=== PATIENT | male | born 1970 | race Caucasian/White ===

== ENCOUNTER 2017-10-07 12:15 | Inpatient (IN) | payer SELFPAY ==
[~2017-10-07] VITALS: Ht 177.8 cm; Wt 73.3 kg
[2017-10-07] MEDS ORDERED: BISMUTH SUBSALICYLATE PER ML OMNICELL CHARGE PO PRN (13:00)
[2017-10-07] MEDS ORDERED: SODIUM CHLORIDE 0.65% NA SOLN 45 ML (OCEAN) PRN (13:00)
[2017-10-07] MEDS ORDERED: MAGNESIUM HYDROXIDE SUSP 30 ML UDC PO PRN (13:00)
[2017-10-07] MEDS ORDERED: ACETAMINOPHEN 325 MG TAB PO PRN (13:00)
[2017-10-07] MEDS ORDERED: ALUMINUM/MAGNESIUM SUSP 30 ML UDC PO PRN (13:00)
[2017-10-07 13:17] VITALS: BP 141/79; PULSE 127; TEMP 36.6; Ht 177.8 cm; Wt 73.3 kg
[2017-10-07] MEDS ORDERED: NURSING VERBAL MED ORDER ONE (13:30)
[2017-10-07] MEDS ORDERED: PATIENT'S ALLERGY INFO NEEDS ENTERED SCH (14:00)
[2017-10-07] MEDS: hydrOXYzine HCL 25 MG TAB PO PRN (14:09)
[2017-10-07] MEDS ORDERED: CLON0.5T3 PO (14:13)
[2017-10-07] MEDS ORDERED: VENL150C PO (14:13)
[2017-10-07] MEDS ORDERED: FENO134C2 PO (14:13)
[2017-10-07] MEDS ORDERED: ATOR-26 PO (14:13)
[2017-10-07] MEDS ORDERED: PRLSR20 PO (14:13)
[2017-10-07] MEDS ORDERED: RISP3TAB12 PO (14:13)
[2017-10-07] MEDS: NICOTINE 21 MG/24 HR TDSY EXT SCH (14:21)
[2017-10-07] MEDS ORDERED: RISPERIDONE 1 MG TAB PO PRN (15:45)
--- NOTE | 2017-10-07 15:48 | Psychiatric History & Physical ---
History Date of Service Oct 07, 2017. Identifying Data Jamie Harris is a 46-year-old male admitted on Oct 07, 2017 at 12:15 who currently lives in [place] with his and [id number]. Jamie Harris was admitted on a 201 voluntary commitment. Patient is admitted after transfer from the [facility] ED. The patient was brought to the unit after transfer from [facility]. Information provided by the patient is considered to be reliable, with exception of medication history. Chief Complaint "The obvious things is I lost my medication". History of Present Illness Jamie Harris is a 46-year-old male admitted to [address] [place] [address] following acceptance from [facility] ED. Pt reports having been off medications for the past month after losing his job and subsequently losing his insurance. He also reports increased stress as his [id number] has been living in his home and requires a considerable amount of care. Pt states he and his were in an argument yesterday in which she had threatened to leave and he had said, "well if I don't have a job or a , I might as well just shoot myself" . Pt's mother and brother were informed if the comment and he was brought to the ED for mental health evaluation. Pt was agreeable to inpatient treatment. Pt states he has struggled with depression for several years, with worsening in the past 2-3. He reports low mood, decreased energy, hopelessness for the past few days, and feeling as though he is a burden. Pt reports occasional passive SI over the past few years, but states he had never formed a plan or had intent or acts of furtherance. He denies contemplation of suicide prior to the argument with his and states the comment lacked intent. Pt reports anxiety as well, reporting irritability and feeling "on-edge". He denies history of panic attacks. Pt current receives prescriptions from [facility]. He was prescribed risperidone 3mg, venlafaxine 150mg, and clonazepam 0.5mg BID-TID. Pt denies SI/ HI, SIB, A/V hallucinations, paranoia, allison, OCD, PTSD, eating disorder, and other psychosis. Past Psychiatric History Current OP Treatment: psychiatrist ([facility]) Prior OP Treatment: no prior treatment Prior Psych Hospitalizations: none Access to a Gun: No (per pt brother has his gun) Suicide Attempts: No Past Medical/Surgical History History of Concussion/Seizure: No Allergies Allergies: Coded Allergies: Ziprasidone (Unverified Allergy, Unknown, SHORTNESS OF BREATH, 10/07/17) Home Medications Scheduled Atorvastatin (Lipitor), 1 TAB PO HS Fenofibrate (Tricor ), 134 MG PO DAILY Omeprazole (Prilosec), 40 MG PO DAILY Risperidone (Risperdal), 3 MG PO HS Venlafaxine Hcl (Effexor Xr), 1 CAP PO DAILY Scheduled PRN Clonazepam (Klonopin), 0.5 MG PO TID PRN for anxiety/insomnia Family History History of Suicide: No History of Substance Abuse: Yes (Dad - Alcoholic) Psychiatric History: No Alcohol Use Alcohol Use In Past 12 Months: No AUDIT Total Score: 0 Smoking Use Smoking Status: Current Every Day Smoker 1 - 1.5 ppd Personal History Lives in: [place] Childhood: Pt was raised primarily by his mother after the of his father. He reports a diagnosis of dyslexia, difficulty concentrating, and unknown learning disability. 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 Relationship History: Children: none Spiritual Affiliation: none Legal History: none Psychological Trauma History: Denies Hx Traumatic Event Review of Systems Psych: denies symptoms other than stated above Constitutional: denied Cardiovascular: denied Respiratory: reports chronic cough from smoking GI: history of indigestion, worsening Neurologic: denied Remainder of 10 body systems also reviewed and denied other than noted above. Examination Physical Examination A physical exam was performed in ER at [facility] by Clyde PITTS , prior to admission. Pt received medical clearance from [facility] prior to transfer to this facility. I accept that physical as correct/medical clearance for the inpatient physical exam. Vital Signs Vital Signs Past 12 Hours Date Time Temp Pulse Resp B/P (MAP) Pulse Ox O2 Delivery O2 Flow Rate FiO2 10/07/17 13:17 36.6 127 18 141/79 Mental Examination During interview pt is: alert and oriented, cooperative Appearance: appropriately dressed (in t-shirt and scrub pants), appropriately groomed Eye contact is: fair Motor behavior is: steady gait & station, no abnormal motor movements Speech: normal in rate, rhythm & volume Affect: depressed, tearful Mood is: depressed Thought process: goal directed, clear, coherent Thought content: reality based without delusions Suicidal thought are: denied (suicidal statement of "I'll just shoot myself" prior to transfer), Plan: denied, Intent: denied Homicidal thoughts are: denied Hallucinations: denies auditory, denies visual Cognition: attention grossly intact, language grossly intact, other (memory impairment with respect to medications) Intelligence estimated to be: average Insight: limited Judgement: limited Impression / Recommendations Impression 46-year-old male admitted to [address] [place] [address] following acceptance from [facility] ED. Pt states suicidal statements were made in the context of argument with his . He denies SI prior to the argument and denies intent or acts of furtherance. Pt reports worsening of mood as he has not been taking his medications for the past month. He reports desire to be restarted on his medications. As patient has lost his insurance and Medical Assistance coverage is not guaranteed, will plan to start on generic medications available through [facility]'s $4 prescription plan to maximize compliance once discharged. Will start risperidone 1mg qHS with plan to convert to haloperidol at discharge. Pt given risperidone 1mg BID prn for anxiety and agitation. Will start fluoxetine 20mg qAM due to availability and decent response to this medication in the past. Pt informed of hydroxyzine available prn for anxiety with plans to discontinue clonazepam use if effective. Diagnosis at this point is unclear as he reports depression and anxiety, but has been on at least ziprasidone and risperidone in the past, seeking clarification from outpatient records. Pt has signed 72-hour notice shortly after admission. Inventory Assets Strengths: willingness for treatment, stable outpatient provider Needs: mitigate risk factors, resolution of current relationship stressors Risk Factors Assessment Male: Yes : Yes /single/: No Access to guns: No (per pt brother has his gun) Health problems: No Mental Health Diagnoses: Yes Substance use disorders: No Previous attempt: No Previous psychiatric stay: No Hopelessness: Yes Smoker: Yes Protective Factors Assessment Holiness beliefs: No : Yes Responsible for young children: No Employed: No Supportive family: Yes Good rapport with provider: No Recommendations (1) Depressive disorder 2/2 - Start risperidone 1mg qHS, prn dosing of 1mg BID for anxiety/agitation. Started on fluoxetine 20mg qAM for antidepressant coverage. - Fasting glucose and lipid panel ordered for tomorrow AM. - Request records from patient's outpatient providers - Encourage participation in group programming including recreational therapy and group therapy - Encourage phone/in-person meeting with identified supports. CPT Code Initial Hospital Care: [id number]
[2017-10-07] MEDS ORDERED: FENOFIBRATE: ORDER AWAITING ACTION SCH (16:00)
--- NOTE | 2017-10-07 19:01 | Psychiatric History & Physical ---
Psychiatric History & Physical Date of Service Oct 07, 2017. Identifying Data Jamie Harris is a 46-year-old male admitted on Oct 07, 2017 at 12:15 who currently lives in [place] with his and [id number]. Jamie Harris was admitted on a 201 voluntary commitment. Patient is admitted after transfer from the [facility] ED. The patient was brought to the unit after transfer from [facility]. Information provided by the patient is considered to be reliable, with exception of medication history. Chief Complaint "The obvious thing is I lost my medication". History of Present Illness Jamie Harris is a 46-year-old male admitted to [address] [place] [address] following acceptance from [facility] ED. Pt reports having been off medications for the past month after losing his job and subsequently losing his insurance. He also reports increased stress as his [id number] has been living in his home and requires a considerable amount of care. Pt states he and his were in an argument yesterday in which she had threatened to leave and he had said, "well if I don't have a job or a , I might as well just shoot myself" . Pt's mother and brother were informed if the comment and he was brought to the ED for mental health evaluation. Pt was agreeable to inpatient treatment. Pt told Mitch Gilmore PA-C that he has struggled with depression for several years, with worsening in the past 2-3. He reports low mood, decreased energy, hopelessness for the past few days, and feeling as though he is a burden. Pt reports occasional passive SI over the past few years, but states he had never formed a plan or had intent or acts of furtherance. He denies contemplation of suicide prior to the argument with his and states the comment lacked intent. Pt reports anxiety as well, reporting irritability and feeling "on-edge ". He denies history of panic attacks. Pt current receives prescriptions from [facility]. He was prescribed risperidone 3mg, venlafaxine 150mg, and clonazepam 0.5mg BID-TID. Pt denies SI/ HI, SIB, A/V hallucinations, paranoia, allison, OCD, PTSD, eating disorder, and other psychosis. Past Psychiatric History Current OP Treatment: psychiatrist ([facility]) Prior OP Treatment: no prior treatment Prior Psych Hospitalizations: none Access to a Gun: No (per pt brother has his gun) Suicide Attempts: No Past Medical/Surgical History History of Concussion/Seizure: No Allergies Allergies: Coded Allergies: Ziprasidone (Unverified Allergy, Unknown, SHORTNESS OF BREATH, 10/07/17) Home Medications Scheduled Atorvastatin (Lipitor), 1 TAB PO HS Fenofibrate (Tricor ), 134 MG PO DAILY Omeprazole (Prilosec), 40 MG PO DAILY Risperidone (Risperdal), 3 MG PO HS Venlafaxine Hcl (Effexor Xr), 1 CAP PO DAILY Scheduled PRN Clonazepam (Klonopin), 0.5 MG PO TID PRN for anxiety/insomnia Family History History of Suicide: No History of Substance Abuse: Yes (Dad - Alcoholic) Psychiatric History: No Alcohol Use Alcohol Use In Past 12 Months: No AUDIT Total Score: 0 Smoking Use Smoking Status: Current Every Day Smoker 1 - 1.5 ppd Personal History Lives in: [place] Childhood: Pt was raised primarily by his mother after the of his father. He reports a diagnosis of dyslexia, difficulty concentrating, and unknown learning disability. 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 Relationship History: Children: none Spiritual Affiliation: none Legal History: none Psychological Trauma History: Denies Hx Traumatic Event Review of Systems Psych: denies symptoms other than stated above Constitutional: denied Cardiovascular: denied Respiratory: reports chronic cough from smoking GI: history of indigestion, worsening Neurologic: denied Remainder of 10 body systems also reviewed and denied other than noted above. Examination Physical Examination A physical exam was performed in ER at [facility] by Clyed PITTS , prior to admission. Pt received medical clearance from [facility] prior to transfer to this facility. I accept that physical as correct/medical clearance for the inpatient physical exam. Vital Signs Vital Signs Past 12 Hours Date Time Temp Pulse Resp B/P (MAP) Pulse Ox O2 Delivery O2 Flow Rate FiO2 10/07/17 13:17 36.6 127 18 141/79 Mental Examination During interview pt is: alert and oriented, cooperative Appearance: appropriately dressed (in t-shirt and scrub pants), appropriately groomed Eye contact is: fair Motor behavior is: steady gait & station, no abnormal motor movements Speech: normal in rate, rhythm & volume Affect: depressed, tearful Mood is: depressed Thought process: goal directed, clear, coherent Thought content: reality based without delusions Suicidal thought are: denied (suicidal statement of "I'll just shoot myself" prior to transfer), Plan: denied, Intent: denied Homicidal thoughts are: denied Hallucinations: denies auditory, denies visual Cognition: attention grossly intact, language grossly intact, other (memory impairment with respect to medications) Intelligence estimated to be: average Insight: limited Judgement: limited Impression / Recommendations Impression 46-year-old male admitted to [address] [place] [address] following acceptance from [facility] ED. Pt states suicidal statements were made in the context of argument with his . He denies SI prior to the argument and denies intent or acts of furtherance. Pt reports worsening of mood as he has not been taking his medications for the past month. He reports desire to be restarted on his medications. As patient has lost his insurance and Medical Assistance coverage is not guaranteed, will plan to start on generic medications [facility] to maximize compliance once discharged. Will start risperidone 1mg qHS with plan to convert to haloperidol at discharge if cost remains a facot. Pt given risperidone 1mg BID prn for anxiety and agitation. Will start fluoxetine 20mg qAM due to availability and decent response to this medication in the past. Pt informed of hydroxyzine available prn for anxiety with plans to discontinue clonazepam use if effective. Diagnosis at this point is unclear as he reports depression and anxiety, but has been on at least ziprasidone and risperidone in the past, seeking clarification from outpatient records. Pt has signed 72-hour notice shortly after admission. Inventory Assets Strengths: willingness for treatment, stable outpatient provider Needs: mitigate risk factors, resolution of current relationship stressors Risk Factors Assessment Male: Yes : Yes /single/: No Access to guns: No (per pt brother has his gun) Health problems: No Mental Health Diagnoses: Yes Substance use disorders: No Previous attempt: No Previous psychiatric stay: No Hopelessness: Yes Smoker: Yes Protective Factors Assessment Confucianist beliefs: No : Yes Responsible for young children: No Employed: No Supportive family: Yes Good rapport with provider: No Recommendations (1) Depressive disorder 2/2 - Restart risperidone at lower dose of 1mg qHS, prn dosing of 1mg BID for anxiety/agitation. Started on fluoxetine 20mg qAM for antidepressant coverage. - Fasting glucose and lipid panel ordered for tomorrow AM as reviewed need for metabolic monitoring, baseline AIMS appears 0 - Request records from patient's outpatient providers -The patient is admitted to [facility] ([facility] inpatient mental health unit) on q 15 min checks (behavioral with suicide precautions) for safety. The patient will participate in group, recreational and milieu therapies and will be offered additional individual and family sessions as clinically appropriate. CPT Code Initial Hospital Care: [id number]
[2017-10-07] MEDS: ATORVASTATIN 40 MG TAB PO SCH (21:17)
[2017-10-07] MEDS ORDERED: hydrOXYzine HCL 25 MG TAB PO ONE (22:00)
[2017-10-07] MEDS ORDERED: RISPERIDONE 1 MG TAB PO SCH (22:00)
[2017-10-08 07:01] VITALS: BP_SYST 101; BP_SYST 116; BP_DIAS 70; BP_DIAS 87; PULSE 118; PULSE 92; TEMP 36.6
[2017-10-08] MEDS: NICOTINE 21 MG/24 HR TDSY EXT SCH (07:42)
[2017-10-08] MEDS: CHOLECALCIFEROL 1000 INTER.UNIT TAB PO SCH (07:43)
[2017-10-08] MEDS: PANTOprazole SOD 40 MG TAB PO SCH (07:43)
[2017-10-08] MEDS: FLUOXETINE HCL 20 MG CAP PO SCH (07:43)
[2017-10-08] MEDS: hydrOXYzine HCL 25 MG TAB PO PRN ×3 (09:55→21:11)
--- NOTE | 2017-10-08 13:35 | Psychiatric Progress Notes ---
Progress Note Date of Service Oct 08, 2017. Interval History Jamie Harris is a 46-year-old male admitted on Oct 07, 2017 at 12:15 who currently lives in [place] with his and [id number]. Jamie Harris was admitted on a 201 voluntary commitment. Patient is admitted after transfer from the [facility] ED. The patient was brought to the unit after transfer from [facility]. Information provided by the patient is considered to be reliable, with exception of medication history. Chief Complaint "I had a hard time sleeping". Subjective Patient was seen & assessed interval progress reviewed with Nursing. Staff reports calls made to [facility] ED to discuss transportation, awaiting response. Pt follows with psychiatric providers at [facility]. Pt was seen today to assess progress since admission. Pt reports feeling "better since I' ve gotten here". He reports difficulty sleeping last evening and received a prn dose of Vistaril for assistance. Pt is continuing to endorse his plan to leave at the end of his 72-hour notice up on 10/10 at ~1300. Pt states he called his mother last evening and was able to text his to let her know he was doing well. Pt states, per his mother, his is still in their home awaiting his return. We reviewed lab results including elevated fasting glucose , triglycerides, and cholesterol. Medication changes were also discussed to allow for compliance in regard to cost. Pt participated appropriately in the conversation. He denies SI/HI, A/V hallucinations. He denies other concerns or needs today. Review of Systems Psych: denies symptoms other than stated above Constitutional: denied Cardiovascular: denied GI: denied Neurologic: denied Remainder of 10 body systems also reviewed and denied other than noted above. Sleep Information Total Hours of Sleep: 10.00 Meal Information Percent of Breakfast Consumed: 75 Percent of Lunch Consumed: 35 Percent of Dinner Consumed: 0 Mental Status Exam During interview pt is: alert and oriented, cooperative Appearance: appropriately dressed, appropriately groomed Eye contact is: good Motor behavior is: steady gait & station, no abnormal motor movements Speech: normal in rate, rhythm & volume Affect: blunted Mood is: other ("better") Thought process: goal directed, clear, coherent Thought content: reality based without delusions Suicidal thought are: denied (admitted following threat to "shoot myself"), Plan: denied, Intent: denied Homicidal thoughts are: denied Hallucinations: denies auditory, denies visual Cognition: attention grossly intact, language grossly intact, other (memory impairment with respect to medications) Intelligence estimated to be: average Insight: limited Judgement: limited Impression Improvement reported in mood since admission. 72-hour notice up 10/10 at ~1300. Unable to obtain records from patient's outpatient provider to clarify diagnosis , and will therefore keep low-dose antipsychotic on board. Pt agreeable to trial of 1mg Haldol qHS to determine response and potential side effects prior to discharge. Attempts being made to consolidate medications to those available on the $4 list through his [facility] pharmacy. Risks, benefits, side effects, and alternatives were discussed. Pt verbalized understanding and is agreeable to the plan above. Will continue Prozac at 20mg at first dose was this AM. Pt encouraged to request Vistaril as needed for anxiety throughout the day. Pt requires ongoing inpatient mental health treatment in order to clarify diagnosis, make medication changes, and assess response. Pt is at risk of decompensation and self-harm if discharged prematurely. Plan (1) Depressive disorder 2/2 - Start risperidone 1mg qHS, prn dosing of 1mg BID for anxiety/agitation. Started on fluoxetine 20mg qAM for antidepressant coverage. - Fasting glucose and lipid panel ordered for tomorrow AM. - Request records from patient's outpatient providers - Encourage participation in group programming including recreational therapy and group therapy - Encourage phone/in-person meeting with identified supports. 2/3 - D/C Risperdal in favor of Haldol 1mg qHS. Continue Prozac 20mg as above. Encourage use of prn Vistaril for anxiety. - Fasting labs reviewed. Elevated glucose-106; triglycerides-285, and total cholesterol-239. Other parameters within normal range. Discussed need for ongoing monitoring with antipsychotic treatment as patient is already receiving medications for hyperlipidemia. - Pt receiving Vitamin D supplementation daily for low Vitamin D level per -[facility] labs. - Encourage participation in group programming - Attempt to schedule phone meetings with or other family members. Discharge / Aftercare Planning Primary Care Physician: Name: reginald. Therapist: Name: alondra Computed Tomography Technologist: Name: alondra Visit Code E&M Code: 32318 Inventory Assets Strengths: willingness for treatment, stable outpatient provider Needs: mitigate risk factors, resolution of current relationship stressors Risk Factors Assessment Male: Yes : Yes /single/: No Health problems: No Mental Health Diagnoses: Yes Substance use disorders: No Previous attempt: No Previous psychiatric stay: No Hopelessness: Yes Smoker: Yes Protective Factors Assessment Mu-Ism beliefs: No : Yes Responsible for young children: No Employed: No Supportive family: Yes Good rapport with provider: No Data Vital Signs Last 24 Hrs: Date Time Temp Pulse Resp B/P (MAP) Pulse Ox O2 Delivery O2 Flow Rate FiO2 10/08/17 07:01 36.6 92 16 101/70 118 116/87 Meds Administered Last 24 Hrs: Meds Administered (Past 24Hrs) Medications (Trade) Dose Ordered Sig/Diana Route Start Time Stop Time Status Last Admin Dose Admin Hydroxyzine HCl (Vistaril Tab) 25 mg Q4H PRN PO 10/07/17 13:00 11/06/17 12:59 10/08/17 09:55 25 MG Nicotine (Nicoderm Cq 21MG Patch) 1 patch QAM EXT 10/07/17 14:00 11/06/17 13:59 10/08/17 07:42 1 PATCH Miscellaneous (Remove Nicoderm Patch) 1 ea QAM N/A 10/08/17 09:00 11/07/17 08:59 10/08/17 07:42 1 EA Fluoxetine HCl (Prozac Cap) 20 mg QAM PO 10/08/17 09:00 11/07/17 08:59 10/08/17 07:43 20 MG Risperidone (Risperdal Tab) 1 mg HS PO 10/07/17 22:00 10/08/17 09:00 DC 10/07/17 21:17 1 MG Risperidone (Risperdal Tab) 1 mg BID PRN PO 10/07/17 15:45 10/08/17 09:00 DC 10/08/17 07:43 1 MG Hydroxyzine HCl (Vistaril Tab) 50 mg HS ONCE PO 10/07/17 22:00 10/07/17 22:01 DC 10/07/17 21:18 50 MG Atorvastatin Calcium (Lipitor Tab) 80 mg HS PO 10/07/17 22:00 11/06/17 21:59 10/07/17 21:17 80 MG Pantoprazole Sodium (Protonix Tab) 40 mg DAILY PO 10/08/17 09:00 11/07/17 08:59 10/08/17 07:43 40 MG Cholecalciferol (Vitamin D Tab) 1,000 inter.unit QAM PO 10/08/17 09:00 11/07/17 08:59 10/08/17 07:43 1,000 INTER.UNIT Lab Results Last 24 Hrs: Last 24 Hours Test 10/08/17 07:05 Fasting Glucose 106 mg/dl Triglycerides Level 285 mg/dl Cholesterol Level 239 mg/dl HDL Cholesterol 24 mg/dl LDL Cholesterol, Calculated 158 mg/dl VLDL Cholesterol, Calculated 57 mg/dl Cholesterol/HDL Ratio 10.0
[2017-10-08] MEDS: HALOPERIDOL 1 MG TAB PO SCH (21:08)
[2017-10-08] MEDS: ATORVASTATIN 40 MG TAB PO SCH (21:10)
[2017-10-09 06:58] VITALS: BP_SYST 103; BP_SYST 115; BP_DIAS 72; BP_DIAS 85; PULSE 101; PULSE 116; TEMP 36.7
--- NOTE | 2017-10-09 07:03 | Psychiatric Progress Notes ---
Progress Note Date of Service Oct 09, 2017. Interval History Jamie Harris is a 46-year-old male admitted on Oct 07, 2017 at 12:15 who currently lives in [place] with his and [id number]. Jamie Harris was admitted on a 201 voluntary commitment. Patient is admitted after transfer from the [facility] ED. The patient was brought to the unit after transfer from [facility]. Information provided by the patient is considered to be reliable, with exception of medication history. Chief Complaint "Well I feel like I'm doing better, but I'm not getting any sleep, being away". Subjective Patient was seen & assessed interval progress reviewed with Nursing. Staff report he slept much of the day, and is requesting hydroxyzine frequently throughout the day. He has a family meeting tomorrow with his mother and brother. He signed an DRAGAN for his , but hasn't been able to reach her. Today he says his mood is a little better, but he is not sleeping well here, which he attributes to being away form home, saying this has always been a problem. He thinks his mood is improved due to medication adjustments and being put back on meds. Talking to his has also helped, notes she is stressed as she is taking care of her mother. He talks about his multiple stressors, losing his job, which resulted in losing his insurance, and then inability to get his meds. He says the fight with his was the final straw that "got me here." He says his mother in law lives with them and her health is declining, and "there are some things I just won't do," like cleaning up in continence, "I just don't have the stomach." This caused an argument with his , which progressed to "me being out of work, bills, I just got to the point where I said if your mother can't help (with the bills), then she can't stay here." His said that if her mother couldn't stay, then she would leave to, "and that really upset me, I didn't want her to leave." He just talked to her today, and says "she misses me, and I miss her." He feels much better since talking to his and learning that she is not leaving him. He denies SI. His mother and brother are coming tomorrow and he hopes they can take him home. Sleep Information Total Hours of Sleep: 7.75 Meal Information Percent of Breakfast Consumed: 75 Percent of Lunch Consumed: 100 Percent of Dinner Consumed: 100 Mental Status Exam During interview pt is: alert and oriented, cooperative Appearance: appropriately dressed, appropriately groomed Eye contact is: good Motor behavior is: steady gait & station, psychomotor agitation (jiggling leg ) Speech: normal in rate, rhythm & volume Affect: anxious, constricted Mood is: other ("better") Thought process: goal directed, clear, coherent Thought content: reality based without delusions Suicidal thought are: denied (admitted to threatening to "shoot myself"), Plan : denied, Intent: denied Homicidal thoughts are: denied Hallucinations: denies auditory, denies visual Cognition: attention grossly intact, language grossly intact Intelligence estimated to be: average Insight: limited Judgement: limited Impression Improvement reported in mood since admission, after talking to and reconciling. 72-hour notice up 10/10 at ~1300. Needs to work on safety plan, and has meeting with his mother and brother on Tuesday. Unable to obtain records from patient's outpatient provider to clarify diagnosis, and will therefore keep low-dose antipsychotic on board. Switched from risperidone to 1mg Haldol qHS (as risperidone not affordable), to determine response and potential side effects prior to discharge. Attempts being made to utilize medications to those available on the $4 list through [facility]. Pt requires ongoing inpatient mental health treatment in order to clarify diagnosis , make medication changes, and assess response. Pt is at risk of decompensation and self-harm if discharged prematurely. Plan (1) Depressive disorder 2/2 - Start risperidone 1mg qHS, prn dosing of 1mg BID for anxiety/agitation. Started on fluoxetine 20mg qAM for antidepressant coverage. - Fasting glucose and lipid panel ordered for tomorrow AM. - Request records from patient's outpatient providers - Encourage participation in group programming including recreational therapy and group therapy - Encourage phone/in-person meeting with identified supports. 2/3 - D/C Risperdal in favor of Haldol 1mg qHS. Continue Prozac 20mg as above. Encourage use of prn Vistaril for anxiety. - Fasting labs reviewed. Elevated glucose-106; triglycerides-285, and total cholesterol-239. Other parameters within normal range. Discussed need for ongoing monitoring with antipsychotic treatment as patient is already receiving medications for hyperlipidemia. - Pt receiving Vitamin D supplementation daily for low Vitamin D level per [facility] labs. - Encourage participation in group programming - Attempt to schedule phone meetings with or other family members. 10/09 - Continue haloperidol and fluoxetine. - Meeting with by phone today, and with his mother and brother tomorrow. - Encourage patient and his to explore options for in home help with care of patient's MIL, as this is primary stressor. Discharge / Aftercare Planning Primary Care Physician: Name: reginald. Therapist: Name: alondra Case Briefer: Name: alondra Visit Code E&M Code: 86817 Inventory Assets Strengths: willingness for treatment, stable outpatient provider Needs: mitigate risk factors, resolution of current relationship stressors Risk Factors Assessment Male: Yes : Yes /single/: No Higher / Fall in social status: No Health problems: No Mental Health Diagnoses: Yes Substance use disorders: No Previous attempt: No Previous psychiatric stay: No Hopelessness: Yes Smoker: Yes Protective Factors Assessment Shinto beliefs: No : Yes Responsible for young children: No Employed: No Supportive family: Yes Good rapport with provider: No Data Vital Signs Last 24 Hrs: Date Time Temp Pulse Resp B/P (MAP) Pulse Ox O2 Delivery O2 Flow Rate FiO2 10/09/17 06:58 36.7 101 16 103/72 116 115/85 Meds Administered Last 24 Hrs: Meds Administered (Past 24Hrs) Medications (Trade) Dose Ordered Sig/Diana Route Start Time Stop Time Status Last Admin Dose Admin Hydroxyzine HCl (Vistaril Tab) 50 mg HSZ PRN PO 10/07/17 13:00 11/06/17 12:59 10/08/17 21:11 50 MG Hydroxyzine HCl (Vistaril Tab) 25 mg Q4H PRN PO 10/07/17 13:00 11/06/17 12:59 10/08/17 14:30 25 MG Nicotine (Nicoderm Cq 21MG Patch) 1 patch QAM EXT 10/07/17 14:00 11/06/17 13:59 10/08/17 07:42 1 PATCH Miscellaneous (Remove Nicoderm Patch) 1 ea QAM N/A 10/08/17 09:00 11/07/17 08:59 10/08/17 07:42 1 EA Fluoxetine HCl (Prozac Cap) 20 mg QAM PO 10/08/17 09:00 11/07/17 08:59 10/08/17 07:43 20 MG Risperidone (Risperdal Tab) 1 mg HS PO 10/07/17 22:00 10/08/17 09:00 DC 10/07/17 21:17 1 MG Risperidone (Risperdal Tab) 1 mg BID PRN PO 10/07/17 15:45 10/08/17 09:00 DC 10/08/17 07:43 1 MG Hydroxyzine HCl (Vistaril Tab) 50 mg HS ONCE PO 10/07/17 22:00 10/07/17 22:01 DC 10/07/17 21:18 50 MG Atorvastatin Calcium (Lipitor Tab) 80 mg HS PO 10/07/17 22:00 11/06/17 21:59 10/08/17 21:10 80 MG Pantoprazole Sodium (Protonix Tab) 40 mg DAILY PO 10/08/17 09:00 11/07/17 08:59 10/08/17 07:43 40 MG Cholecalciferol (Vitamin D Tab) 1,000 inter.unit QAM PO 10/08/17 09:00 11/07/17 08:59 10/08/17 07:43 1,000 INTER.UNIT Haloperidol (Haldol Tab) 1 mg HS PO 10/08/17 22:00 11/07/17 21:59 10/08/17 21:08 1 MG Lab Results Last 24 Hrs: Last 24 Hours Test 10/08/17 07:05 Fasting Glucose 106 mg/dl Triglycerides Level 285 mg/dl Cholesterol Level 239 mg/dl HDL Cholesterol 24 mg/dl LDL Cholesterol, Calculated 158 mg/dl VLDL Cholesterol, Calculated 57 mg/dl Cholesterol/HDL Ratio 10.0
[2017-10-09] MEDS: NICOTINE 21 MG/24 HR TDSY EXT SCH (08:01)
[2017-10-09] MEDS: PANTOprazole SOD 40 MG TAB PO SCH (08:02)
[2017-10-09] MEDS: CHOLECALCIFEROL 1000 INTER.UNIT TAB PO SCH (08:02)
[2017-10-09] MEDS: FLUOXETINE HCL 20 MG CAP PO SCH (08:02)
[2017-10-09] MEDS: hydrOXYzine HCL 25 MG TAB PO PRN ×4 (08:06→22:02)
[2017-10-09] MEDS: HALOPERIDOL 1 MG TAB PO SCH (21:15)
[2017-10-09] MEDS: ATORVASTATIN 40 MG TAB PO SCH (21:15)
[2017-10-10 06:56] VITALS: BP_SYST 101; BP_SYST 106; BP_DIAS 59; BP_DIAS 69; PULSE 109; PULSE 99; TEMP 36.4
[2017-10-10] MEDS: FLUOXETINE HCL 20 MG CAP PO SCH (08:09)
[2017-10-10] MEDS: PANTOprazole SOD 40 MG TAB PO SCH (08:09)
[2017-10-10] MEDS: NICOTINE 21 MG/24 HR TDSY EXT SCH (08:09)
[2017-10-10] MEDS: CHOLECALCIFEROL 1000 INTER.UNIT TAB PO SCH (08:09)
[2017-10-10] MEDS ORDERED: FLUO20CA36 PO (09:18)
[2017-10-10] MEDS ORDERED: HLD1 PO (09:18)
[2017-10-10] MEDS ORDERED: HALOPERIDOL 1 MG TAB PO SCH (09:30)
[2017-10-10] MEDS ORDERED: NON-FORMULARY MEDICATION SCH (09:30)
[2017-10-10] MEDS ORDERED: FLUOXETINE HCL 20 MG CAP PO SCH (09:30)
--- NOTE | 2017-10-10 09:37 | Discharge Instructions ---
Discharge Information Report Includes Report will include the: Discharge Instructions & Summary Admission Admission Date / Time: Oct 07, 2017 at 12:15 Reason for Admission: Unspecified Depressive Disorder Discharge Discharge Diagnosis / Problem: Depression Condition at Discharge: Good Discharge Goals Goal(s): Improve function, Improve disease control, Learn about illness, Therapeutic intervention Activity Recommendations Activity Limitations: per Instructions/Follow-up section . Instructions / Follow-Up Instructions / Follow-Up . SPECIAL CARE INSTRUCTIONS: 1. Follow through with your scheduled aftercare appointments. If unable to keep an appointment, please call to reschedule. 2. Take your medication only as prescribed. Medication should not be changed or stopped without the approval of your doctor. In the event of worsening symptoms or concerns about side effects, contact your doctor immediately. 3. Utilize new healthy coping skills, anger management skills, and stress management skills learned during your hospitalization. Journal feelings and process them with a support person. Identify stressors or situations that may result in relapse, deterioration or inappropriate behaviors and develop a plan to deal with those issues. 4. If your coping skills are ineffective and you are in crisis, contact your outpatient providers for direction. If unable to reach your providers, please call the CAN HELP LINE AT or go to the closest Emergency Room. 5. Avoid alcohol and un-prescribed drugs. 6. You have been provided with the Mental Health Advance Directives Pamphlet for your review. AFTERCARE APPOINTMENTS: * Please call your insurance company prior to your scheduled appointment to confirm your aftercare providers are covered. Take your insurance information to your appointments. . Discharge / Aftercare Planning Primary Care Physician: Name: reginald. Therapist: Name Of Therapist: alondra [employer] Paralegal: Name: alondra . Follow-Up Care Plan for Follow-Up Care: See above - [facility]. Current Hospital Diet Patient's current hospital diet: Regular Diet Discharge Diet Recommended Diet: Regular Diet Procedures Procedures Performed: No Pending Studies Pending Studies at Discharge: No Medical Emergencies . Who to Call and When: Medical Emergencies: For questions or emergencies related to your hospital stay, please contact the Inpatient Behavioral Health Unit at [phone]. A precision dyer is on-call 28/03 for the Behavioral Health Unit for emergencies At any time you feel your situation is an emergency, you may also call 911 immediately. . Non-Emergent Contact Non-Emergency issues call your: Primary Care Provider, Psychiatrist, Therapist Past History Medical & Surgical History: (1) Nicotine dependence (2) GERD (gastroesophageal reflux disease) (3) Hyperlipemia Advance Directives Existing Advance Directive: No Do You Have an Existing Mental: No Existing Living Will: No Existing Power of Last Pattern Grader: No Advance Directives Info Given: To Pt/S.O. Advance Directives Reason: Declines as Mental Health Visit. Discharge Summary Admission HPI Per the Admitting provider: Jamie Harris is a 46-year-old male admitted to [address] [place] [address] following acceptance from [facility] ED. Pt reports having been off medications for the past month after losing his job and subsequently losing his insurance. He also reports increased stress as his kcovxc-co-gam has been living in his home and requires a considerable amount of care. Pt states he and his were in an argument yesterday in which she had threatened to leave and he had said, "well if I don't have a job or a , I might as well just shoot myself" . Pt's mother and brother were informed if the comment and he was brought to the ED for mental health evaluation. Pt was agreeable to inpatient treatment. Pt states he has struggled with depression for several years, with worsening in the past 2-3. He reports low mood, decreased energy, hopelessness for the past few days, and feeling as though he is a burden. Pt reports occasional passive SI over the past few years, but states he had never formed a plan or had intent or acts of furtherance. He denies contemplation of suicide prior to the argument with his and states the comment lacked intent. Pt reports anxiety as well, reporting irritability and feeling "on-edge". He denies history of panic attacks. Pt current receives prescriptions from [facility]. He was prescribed risperidone 3mg, venlafaxine 150mg, and clonazepam 0.5mg BID-TID. Pt denies SI/ HI, SIB, A/V hallucinations, paranoia, allison, OCD, PTSD, eating disorder, and other psychosis. Admission Exam Per the Admitting provider: Please see admission H&P. Consultations None. Hospital Course (1) Depressive disorder 2/2 - Start risperidone 1mg qHS, prn dosing of 1mg BID for anxiety/agitation. Started on fluoxetine 20mg qAM for antidepressant coverage. - Fasting glucose and lipid panel ordered for tomorrow AM. - Request records from patient's outpatient providers - Encourage participation in group programming including recreational therapy and group therapy - Encourage phone/in-person meeting with identified supports. 2/3 - D/C Risperdal in favor of Haldol 1mg qHS. Continue Prozac 20mg as above. Encourage use of prn Vistaril for anxiety. - Fasting labs reviewed. Elevated glucose-106; triglycerides-285, and total cholesterol-239. Other parameters within normal range. Discussed need for ongoing monitoring with antipsychotic treatment as patient is already receiving medications for hyperlipidemia. - Pt receiving Vitamin D supplementation daily for low Vitamin D level per [facility] labs. - Encourage participation in group programming - Attempt to schedule phone meetings with or other family members. 2 - Continue haloperidol and fluoxetine. - Meeting with by phone today, and with his mother and brother tomorrow. - Encourage patient and his to explore options for in home help with care of patient's MIL, as this is primary stressor. 2/5 - Family meeting today with mother and brother, who will transport him home. Safety plan completed and reviewed. 72 hour notice will today and he does not want to stay for further treatment, symptoms are improved, appropriate for discharge. Have recommended to family the guns be secured prior to discharge for safety. - Prescriptions for haloperidol and fluoxetine issued for #30 days with 1 refill, so that he will have adequate supply until his f/u appointment at [facility] (cannot be seen there until he has insurance again). Risk Factors Assessment Male: Yes : Yes /single/: No Higher / Fall in social status: No Access to guns: No (social work case manager confirmed guns removed from the home and secured by brother) Health problems: No Mental Health Diagnoses: Yes Substance use disorders: No Previous attempt: No Previous psychiatric stay: No Hopelessness: Yes Smoker: Yes Protective Factors Assessment Holiness beliefs: No : Yes Responsible for young children: No Employed: No Supportive family: Yes Good rapport with provider: No Absence of risk factors above: Yes (risk factors were mitigated by admission to the inpatient unit, starting him back on medications and choosing medications that are affordable as he does not currently have insurance, coordinating care with his outpatient mental health providers in arranging for him to have appointments once insurance has been restarted, family meetings with his , mother, and brother, developing a safety plan, confirming that brother removed and secured his guns, involving him in groups and therapy, working on healthy coping skills and her discharge safety plan. The patient has been calm and cooperative here, has tolerated medication adjustments well, mood has improved, and he has consistently denied suicidality. He submitted a 72 hour notice which expires today, and is no longer at acute risk of harm to himself, so can be managed as an outpatient at this time. He does not have significant risk factors for harm to others.) Day of Discharge Assessment Hospital course: On admission, the patient was restarted on medications, as he stated he had been doing well on risperidone and venlafaxine XR, but mood decompensated when he went off of them due to losing his insurance. As he does not expect to get insurance for another few weeks, he was started on less expensive medications that would be affordable and on the [facility] $4 list, namely fluoxetine and low- dose haloperidol. He tolerated these well, and mood improved. He submitted a 72 hour notice requesting to withdraw from treatment, stating that the hospital he was transferred from did not inform him that he would need to provide his own transportation home, and that he did not really want to be admitted. He denied suicidal thoughts throughout his stay, and was able to process the stressors that led to his suicidality on admission, namely stress in caring for his ill and declining [id number] and an argument with his . He spoke with his and they reconciled, and she participated in a family meeting by phone on 10/09/2017. She stated that his behavior prior to admission was "not him. It was a monster without medications." The patient agreed that his behavior had been negatively affected by going off of his medications and was out of character. He was tearful during the meeting, and his stated that she was willing to take him back, as initially he had been afraid that she was going to leave him. He talked about how stressful it has been, as his is working at a residential and they are also providing dvncta-hli-[id number] care for his dlqral-hh-yvt who is living with them. He has not been willing to clean her up after she is incontinent, which led to the recent argument. A family meeting was also scheduled with his mother and brother for the day of discharge. His brother was contacted by staff and confirmed that he had removed the patient's guns and would keep him at his house until the patient had stabilized. Staff also spoke with his mother, who expressed concern about him, stating that he has not been able to keep a job, and that "if someone looks at him wrong, he quits." He wondered if he put on disability for this. He attended and participated in groups, anxiety and irritability improved, and he was able to work on a discharge safety plan. He was encouraged to move up his follow-up appointment at [facility], but said he did not want to do that as he was worried that his insurance would not yet reinstated. Day of discharge assessment: The patient states that mood and anxiety have improved, describes his mood is "good," and denies any thoughts of harming himself or anyone else. He is very relieved that he and his have reconciled, and expresses remorse for his behavior prior to admission. He is looking forward to returning home, seeing his and his cats, and feels better able to manage his stressors. He denies any side effects to his medications, and feels they're helping him. He is not interested in smoking cessation education, medication, or follow-up, and states the first thing he is going to do when he leaves the smoke a cigarette. He reports good sleep and appetite, and is able to review his safety plan. He is willing to follow-up with his outpatient providers. Well nourished, well developed WM appearing stated age. Casually dressed and adequately groomed, smells of smoke. Calm and cooperative. Seated in NAD, with fair eye contact and no abnormal movements. Speech is normal rate, volume , and tone. Mood is "good," and affect is stable and congruent. Thoughts are linear, logical and goal directed. The patient denied suicidal and homicidal ideation and was able to safety plan. No paranoia, delusions, or hallucinations , and did not appear to be responding to internal stimuli. Cognition was grossly intact. Alert and oriented to person, place and time. Intelligence is consistent with level of education. Insight and and judgment are fair. Laboratory Test 10/08/17 07:05 Fasting Glucose 106 Triglycerides Level 285 Cholesterol Level 239 HDL Cholesterol 24 LDL Cholesterol, Calculated 158 VLDL Cholesterol, Calculated 57 Cholesterol/HDL Ratio 10.0 Total Time Total Time Spent (min): Greater than 30 minutes Total Time Included: examination of the patient, discharge planning, medication reconciliation Tobacco Cessation at Discharge Smoking Status: Current Every Day Smoker FDA approved Prescription: declined med & out pt counseling (patient wishes to resume smoking on discharge and declined offers for a prescription for the patch or gum.)
== END 2017-10-10 11:18 | disposition home or self-care (01) | DRG 881 ==
LOC: C.MHU 12:15
PROVIDERS: ADMIT Psychiatry & Neurology Child & Adolescent Psychiatry; ATTEND Psychiatry & Neurology Child & Adolescent Psychiatry
DX: F32.9 Major depressive disorder, single episode, unspecified (principal); K21.9 Gastro-esophageal reflux disease without esophagitis; E78.5 Hyperlipidemia, unspecified; Z79.899 Other long term (current) drug therapy; F17.200 Nicotine dependence, unspecified, uncomplicated